=== PATIENT | male | born 1955 | race Caucasian/White ===

== ENCOUNTER 2025-10-20 03:33 | Inpatient (IN) | payer OTHER, MEDICARE ==
[~2025-10-20] VITALS: Ht 188 cm; Wt 98.9 kg
[2025-10-20] VITALS (10 sets, daily range): BP systolic 112–131; BP diastolic 75–83; PULSE 67–92; RESP 15–20; TEMP 97.7–98; O2SAT 95–99
--- NOTE | 2025-10-20 04:13 | ED.PDOC ---
History of Present Illness HPI Comments 69-year-old male who came to ER for abdominal pain. Patient denies any medical problems. Denies any abdominal surgeries. States since 10 am yesterday, he has been having constant diffuse abdominal pain, nonradiating associated with dry heaving. Denies any diarrhea or urinary symptoms. REVIEW OF SYSTEMS: General: No fever, no chills, or fatigue HEENT: No sore throat, no earache, no congestion, no neck pain. Cardiac: No chest pain. No palpitations. Lungs: No shortness of breath, no cough. GI: No nausea, no vomiting, no diarrhea, no constipation, (+) abdominal pain : No dysuria, frequency, or urgency. No hematuria. Musculoskeletal: No joint pain , no joint swelling, no extremity edema. Skin: No rash, no itching. Neuro: No headache, no dizziness, no weakness EXAM: General: Awake, alert and oriented. No acute distress. Skin: Skin in warm, dry and intact. Appropriate color for ethnicity. HEENT: The head is normocephalic and atraumatic. Conjunctivae are clear without exudates or hemorrhage. Sclera is non-icteric. EOM are intact. No signs of nystagmus. Eyelids are normal in appearance without swelling or lesions. Oral mucosa is pink and moist Neck: The neck is supple with normal range of motion. No JVD. Cardiac: Heart rate and rhythm are normal. No murmurs, gallops, or rubs are auscultated. Respiratory: No signs of respiratory distress. Lung sounds are clear in all lobes bilaterally without rales, rhonchi, or wheezes. Abdominal: Abdomen is soft, non-tender without distention. Bowel sounds are present and normoactive in all four quadrants. Extremities: Upper and lower extremities are atraumatic in appearance without deformity or edema. Neurological: The patient is awake, alert and oriented to person, place, and time with normal speech. Speech is clear. There is no facial asymmetry. Psychiatric: Appropriate mood and affect. Good judgement and insight Chief Complaint: Abdominal Pain Time Seen by MD: 04:13 Reviewed Notes: Nurses Notes Allergies: Coded Allergies: Codeine (Verified Allergy, Unknown, 10/20/25) Penicillins (Verified Allergy, Unknown, 10/20/25) Information Source: Patient Mode of Arrival: Ambulatory Past Medical History PAST MEDICAL HISTORY: Denies Surgical History (Other): Leg surgery Family History Family History: Reviewed,noncontributory to illness Social History Smoker: Non-Smoker Alcohol: Denies ETOH Use Drugs: Denies Drug Use Lives In: Home Was a procedure done? Was a procedure done?: No Differential Dx Considerations may include: Abdominal pain, gastritis, gastroenteritis, pancreatitis, gallstones, appendicitis, hernia X-Ray, Labs, Meds, VS Vital Signs Date Time Temp Pulse Resp B/P (MAP) Pulse Ox O2 Delivery O2 Flow Rate FiO2 10/20/25 08:14 65 18 125/78 10/20/25 08:00 98.2 64 17 125/78 (94) 96 98.2 10/20/25 07:35 68 10/20/25 07:00 68 15 105/66 (79) 94 10/20/25 05:30 98.4 69 18 130/71 (90) 95 98.4 10/20/25 05:30 68 18 96 Room Air* 0 21 10/20/25 05:23 64 18 130/71 10/20/25 04:53 98.4 66 17 132/74 (93) 97 98.4 10/20/25 04:53 66 17 132/74 10/20/25 04:53 66 17 97 Room Air 10/20/25 03:35 98.2 82 16 140/81 96 98.2 Lab Test 10/20/25 08:05 10/20/25 04:30 Range/Units Prothrombin Time 11.0 9.3-11.8 sec Prothrombin Time INR 1.04 0.9-1.15 Activated Partial Thromboplast Time 25.4 24.5-34.5 SEC White Blood Count 11.7 H 4.4-10.8 10^3/uL Red Blood Count 5.21 4.5-5.90 10^6/uL Hemoglobin 15.9 13.5-17.5 g/dL Hematocrit 46.7 41.0-53.0 % Mean Corpuscular Volume 89.6 80.0-100.0 fL Mean Corpuscular Hemoglobin 30.6 28.0-32.0 pg Mean Corpuscular Hemoglobin Concent 34.1 32.0-36.0 g/dL Red Cell Distribution Width 14.3 11.8-14.3 % Platelet Count 177 140-450 10^3/uL Mean Platelet Volume 9.3 6.9-10.8 fL Neutrophils (%) (Auto) 78.3 37.0-80.0 % Lymphocytes (%) (Auto) 8.1 L 10.0-50.0 % Monocytes (%) (Auto) 12.2 H 0.0-12.0 % Eosinophils (%) (Auto) 1.1 0.0-7.0 % Basophils (%) (Auto) 0.3 0.0-2.0 % Neutrophils # (Auto) 9.2 H 1.6-8.6 10 ^3/uL Lymphocytes # (Auto) 1.0 0.4-5.4 10 ^3/uL Monocytes # (Auto) 1.4 H 0-1.3 10 ^3/uL Eosinophils # (Auto) 0.1 0-0.8 10 ^3/uL Basophils # (Auto) 0 0-0.2 10 ^3/uL Nucleated Red Blood Cells 0.1 % Sodium Level 140 136-145 mmol/L Potassium Level 4.0 3.5-5.1 mmol/L Chloride Level 107 98-107 mmol/L Carbon Dioxide Level 23 20-31 mmol/L Anion Gap 10 5-15 Blood Urea Nitrogen 19 9-23 mg/dL Creatinine 1.17 0.700-1.30 mg/dL Glomerular Filtration Rate Calc 68 >90 mL/min BUN/Creatinine Ratio 16.2 10.0-20.0 Serum Glucose 105 74-106 mg/dL Calcium Level 9.8 8.7-10.4 mg/dL Total Bilirubin 0.8 0.2-1.0 mg/dL Aspartate Amino Transferase (AST) 15 13-40 U/L Alanine Aminotransferase (ALT) 19 7-40 U/L Alkaline Phosphatase 34 L 46-116 U/L Total Protein 7.4 5.7-8.2 g/dL Albumin 4.7 3.2-4.8 g/dL Lipase 35 12-53 U/L Time of 1ST Reevaluation: 04:01 Reevaluation 1ST: Unchanged Patient Education/Counseling: Need For Follow Up Family Education/Counseling: No Family Present SEPSIS Sepsis Screen Date sepsis recognized/suspect: Oct 20, 2025 Time Sepsis recognized/suspect: 336 Recent Procedure: No On Antibiotic Therapy: No Respiratory Rate >20: No Heart Rate >90: No Temp<36 C (96.8 F) or >38.3 C: No SBP <90 or MAP <65 mmHG: No New Acute Mental Status Change: No Is the patient on CPAP, BIPAP,: No Physician Orders Ct Ab Pel Wo Con-No Oral Or Iv (10/20/25 04:12) Metronidazole 500mg/100ml (Flagyl 500mg/ (10/20/25 14:00) Levofloxacin 500mg (Levaquin 500mg/ 100m (10/20/25 10:00) * Surgical Consult (10/20/25 ) Allergies (10/20/25 07:19) Code Status (10/20/25 07:19) Oxygen Per Hour (10/20/25 07:19) Ondansetron Hcl (Zofran) (10/20/25 07:30) Docusate Sodium Capsule (Colace Capsule) (10/20/25 07:30) Condition: Serious (10/20/25 07:19) Acetaminophen Tablet (Tylenol Tablet) (10/20/25 07:30) Bedrest With Bathroom Privileg (10/20/25 07:19) Sequential Compression Device (10/20/25 ) Chest Portable (10/20/25 07:36) Electrocardigram (10/20/25 07:41) Vital Signs Date Time Temp Pulse Resp B/P (MAP) Pulse Ox O2 Delivery O2 Flow Rate FiO2 10/20/25 08:14 65 18 125/78 10/20/25 08:00 98.2 64 17 125/78 (94) 96 98.2 10/20/25 07:35 68 10/20/25 07:00 68 15 105/66 (79) 94 10/20/25 05:30 98.4 69 18 130/71 (90) 95 98.4 10/20/25 05:30 68 18 96 Room Air* 0 21 10/20/25 05:23 64 18 130/71 10/20/25 04:53 98.4 66 17 132/74 (93) 97 98.4 10/20/25 04:53 66 17 132/74 10/20/25 04:53 66 17 97 Room Air 10/20/25 03:35 98.2 82 16 140/81 96 98.2 Laboratory Tests Test 10/20/25 04:30 White Blood Count 11.7 10^3/uL (4.4-10.8) H Departure 1 Departure Time of Disposition: 05:05 Impression: Primary Impression: Acute appendicitis Disposition: 09 ADMITTED INPATIENT Condition: Stable Comments 69-year-old male with the acute appendicitis, antibiotics, IV fluids, analgesics administered in the emergency department. Discussed with general surgery Patient admitted to hospitalist service for further treatment, evaluation and monitoring. Critical Care Note Critical Care Time?: No Stability Stability form required: No Heart Score Heart Score: Heart Score Response (Comments) Value History N/A 0 EKG N/A 0 Age N/A 0 Risk Factors N/A 0 Troponin N/A 0 Total 0 I personally scribed for JING MANSFIELD MD ([email or web address]) on 10/20/25 at 04:13. Electronically submitted by Adria Duran ([facility]). JING MANSFIELD MD Oct 20, 2025 04:13
[2025-10-20 04:44] LABS: Hematocrit 46.7 % (41.0-53.0); Hemoglobin 15.9 g/dL (13.5-17.5); Mean Corpuscular Hemoglobin 30.6 pg (28.0-32.0); Mean Corpuscular Volume 89.6 fL (80.0-100.0); Nucleated Red Blood Cells % 0.1 %
[2025-10-20] MEDS: ONDANSETRON HCL 4 MG/2 ML VIAL IM ONE (04:53)
[2025-10-20] MEDS: MORPHINE SULFATE INJ 2 MG/ml SYRG IM ONE (04:53)
[2025-10-20 04:55] LABS: Alanine Aminotransferase 19 U/L (7-40); Albumin 4.7 g/dL (3.2-4.8); Anion Gap 10 (5-15); BUN/Creatinine Ratio 16.2 (10.0-20.0); Bilirubin, Total 0.8 mg/dL (0.2-1.0); Blood Urea Nitrogen 19 mg/dL (9-23); Calcium 9.8 mg/dL (8.7-10.4); Carbon Dioxide 23 mmol/L (20-31); Chloride 107 mmol/L (98-107); Glucose 105 mg/dL (74-106); Lipase 35 U/L (12-53); Potassium 4.0 mmol/L (3.5-5.1); Sodium 140 mmol/L (136-145); Total Protein 7.4 g/dL (5.7-8.2)
[2025-10-20 04:57] LABS: Alkaline Phosphatase 34 U/L (46-116)
[2025-10-20] MEDS: MORPHINE SULFATE 4 MG/ML SYR/VIAL ONE (04:58)
--- NOTE | 2025-10-20 05:02 | DVH ---
EXAM: CT CT AB PEL WO CON-NO ORAL OR IV History: Abdominal pain Comparison Study: None TECHNIQUE: Multidetector CT of the abdomen and pelvis was performed from lung bases to pubic symphysis. Imaging was performed without IV contrast. Axial, coronal and sagittal multiplanar reformats were obtained from the axial data set by the technologist. Radiation optimization: All CT scans at this facility use at least one of these dose optimization techniques: automated exposure control mA and/or kV adjustment per patient size (includes targeted exams where dose is matched to clinical indication) or iterative reconstruction. Radiation Dose Information: CT Dose: CTDI volume is 8.65 mGy. Dose-length product is 524.0 mGy*cm FINDINGS: Evaluation of solid organs is limited due to lack of intravenous contrast use. Imaged portions of the lung bases appear unremarkable. Mild coronary artery calcifications. Moderate hiatal hernia. Hypodensities within the liver likely represent cysts. Gallbladder, spleen, pancreas and adrenal glands appear unremarkable. The kidneys demonstrate probable bi lateral parapelvic cysts. No evidence of hydronephrosis. The appendix is dilated to 1.3 cm with marked periappendiceal fat stranding and a 0.6 cm appendicolith at the base. No evidence of perforation or abscess. No evidence of small-bowel obstruction. Diffuse colonic diverticulosis. No free fluid, free air, or adenopathy. Prostate gland is prominent measuring 5.8 x 5.1 cm. No free fluid, free air, or adenopathy. No suspicious osseous lesion. IMPRESSION: 1. Findings consistent with acute uncomplicated appendicitis and appendicolith. Critical Result: Acute appendicitis Findings discussed with JING MANSFIELD at 10/20/2025 07:59 AM EST, and acknowledged receipt and understanding of the findings. ..
[2025-10-20] MEDS: SODIUM CHLORIDE 0.9% 1,000 ML IV ONE (05:30)
[2025-10-20] MEDS ORDERED: DOCUSATE SOD 100 MG CAP PO PRN (07:30)
[2025-10-20] MEDS ORDERED: ACETAMINOPHEN 325 MG TAB PO PRN (07:30)
[2025-10-20] MEDS: Lidocaine/Epinephrine 1%-1:100,000 30ML VL ONE (07:50)
[2025-10-20] MEDS: HYDROmorphone HCL 2 MG/ML VL/or syr IV ONE (08:14)
[2025-10-20] MEDS: ONDANSETRON HCL 4 MG/2 ML VIAL IV ONE (08:14)
[2025-10-20] MEDS: SOD CHL 0.45% 1,000 ML IV SCH (08:16)
--- NOTE | 2025-10-20 08:21 | DVH ---
CHEST RADIOGRAPH INDICATION: preoperative TECHNIQUE: XY CHEST PORTABLE Comparison: None FINDINGS: The cardiac silhouette is unremarkable. The lungs demonstrate left basilar airspace opacities. The pulmonary vasculature is unremarkable. Small left pleural effusion. There is no pneumothorax. IMPRESSION: Left basilar airspace opacification Small left pleural effusion
--- NOTE | 2025-10-20 08:32 | DVHHP2 ---
History of Present Illness Reason for Visit: Acute appendicitis History of Present Illness The patient is a 69-year-old male who denies past medical history presented to [facility] ED with complaint of abdominal pain. Patient reports that he has been experiencing constant diffuse abdominal pain rating 7/10 numeric s ondina, nonradiating, associated with dry heaving, getting worse that prompted this visit. Patient was seen and evaluated in the ED, laboratory data shows WBC 11.7, platelets 177, sodium 140, potassium 4.0, BUN 19, creatinine 1.17, GFR 68, glucose 105, calcium 9.8, lipase 35, blood pressure 130/71, heart rate 69, temperature 98.4 F, O2 saturation 97% on room air. Abdomen/pelvis CT consistent with acute uncomplicated appendicitis and appendicolith; chest x-ray revealing left bibasilar airspace opacification, small left pleural effusion. Patient was started on IV antibiotic regimen levofloxacin, please see medication orders section in the computer. On my assessment, at bedside, patient denied chest pain, no headache, dizziness, diaphoresis, shortness of breaths, no abdominal pain, diarrhea, nausea or vomiting at this moment, no fever, no chills. Patient was admitted for further evaluation and medical management. Past Medical History Denies past medical history Past Surgical History Leg surgery Family History Reviewed, noncontributory to the management of this case. Past Social History The patient lives at home, denies smoking, alcohol or illicit drugs abuse. Review of Systems Constitutional: Yes: Weakness; No: Fever, Chills, Sweats, Malaise, Other Eyes: No: Pain, Vision change, Conjunctivae inflammation, Eyelid inflammation, Other, Redness ENT: No: Ear pain, Ear discharge, Nose pain, Nose discharge, Nose congestion, Mouth pain, Mouth swelling, Throat pain, Throat swelling, Other Respiratory: No: Cough, Dry, Shortness of breath, SOB with excertion, Wheezing, Hemoptysis, Pleuritic Pain, Sputum, Wheezing, Other Cardiovascular: No: Chest Pain, Palpitations, Orthopnea, Paroxysmal Noc. Dyspnea, Edema, Lt Headedness, Other Gastrointestinal: Abdominal Pain; No: Nausea, Vomiting, Diarrhea, Constipation, Melena, Hematochezia, Other Genitourinary: No Dysuria, No Frequency, No Incontinence, No Hematuria, No Retention, No Other Musculoskeletal: No: other, neck pain, shoulder pain, arm pain, back pain, hand pain, leg pain, foot pain Skin: No: Rash, Lesions, Jaundice, Bruising, Other Neurological: No: Weakness, Numbness, Incoordination, Change in speech, Confusion, Seizures, Other Allergies: Coded Allergies: Codeine (Verified Allergy, Unknown, 10/20/25) Penicillins (Verified Allergy, Unknown, 10/20/25) Medications Current Medications Medications Dose Ordered Sig/Jasper Route Start Time Stop Time Status Last Admin Dose Admin Metronidazole 100 ml @ 100 mls/hr Q8HR IV 10/20/25 14:00 Levofloxacin/ Dextrose 100 ml @ 100 mls/hr DAILY IV 10/20/25 10:00 Ondansetron HCl 4 mg Q4HP PRN IV 10/20/25 07:30 Docusate Sodium 100 mg BIDPRN PRN PO 10/20/25 07:30 Acetaminophen 650 mg Q6HP PRN PO 10/20/25 07:30 Sodium Chloride 1,000 ml @ 50 mls/hr Q20H IV 10/20/25 07:45 10/20/25 08:16 50 MLS/HR Exam Vital Signs Vital Signs Date Time Temp Pulse Resp B/P (MAP) Pulse Ox O2 Delivery O2 Flow Rate FiO2 10/20/25 08:14 65 18 125/78 10/20/25 08:00 98.2 96 98.2 10/20/25 05:30 Room Air* 0 21 General Appearance: Alert, Oriented X3, Cooperative, No acute distress HEENT: Atraumatic, PERRLA, EOMI, Mucous membr. moist/pink Respiratory: Normal air movement Cardiovascular: Regular rate, Normal S1, Normal S2, No murmurs Abdominal: Normal bowel sounds, Soft, No tenderness, No hepatospenomegaly, No masses Extremities: No clubbing, No cyanosis, No edema, Normal pulses, No tenderness/swelling Skin: No rashes, No significant lesion Neuro: Normal speech, Normal tone, Sensation intact, Cranial nerves 3-12 NL, Reflexes 2+, Other (Generalized weakness) Psych/Mental Status: Mental status NL, Mood NL Labs/Xrays Labs Test 10/20/25 08:05 10/20/25 04:30 Range/Units White Blood Count 11.7 H 4.4-10.8 10^3/uL Red Blood Count 5.21 4.5-5.90 10^6/uL Hemoglobin 15.9 13.5-17.5 g/dL Hematocrit 46.7 41.0-53.0 % Mean Corpuscular Volume 89.6 80.0-100.0 fL Mean Corpuscular Hemoglobin 30.6 28.0-32.0 pg Mean Corpuscular Hemoglobin Concent 34.1 32.0-36.0 g/dL Red Cell Distribution Width 14.3 11.8-14.3 % Platelet Count 177 140-450 10^3/uL Mean Platelet Volume 9.3 6.9-10.8 fL Neutrophils (%) (Auto) 78.3 37.0-80.0 % Lymphocytes (%) (Auto) 8.1 L 10.0-50.0 % Monocytes (%) (Auto) 12.2 H 0.0-12.0 % Eosinophils (%) (Auto) 1.1 0.0-7.0 % Basophils (%) (Auto) 0.3 0.0-2.0 % Neutrophils # (Auto) 9.2 H 1.6-8.6 10 ^3/uL Lymphocytes # (Auto) 1.0 0.4-5.4 10 ^3/uL Monocytes # (Auto) 1.4 H 0-1.3 10 ^3/uL Eosinophils # (Auto) 0.1 0-0.8 10 ^3/uL Basophils # (Auto) 0 0-0.2 10 ^3/uL Nucleated Red Blood Cells 0.1 % Sodium Level 140 136-145 mmol/L Potassium Level 4.0 3.5-5.1 mmol/L Chloride Level 107 98-107 mmol/L Carbon Dioxide Level 23 20-31 mmol/L Anion Gap 10 5-15 Blood Urea Nitrogen 19 9-23 mg/dL Creatinine 1.17 0.700-1.30 mg/dL Glomerular Filtration Rate Calc 68 >90 mL/min BUN/Creatinine Ratio 16.2 10.0-20.0 Serum Glucose 105 74-106 mg/dL Calcium Level 9.8 8.7-10.4 mg/dL Total Bilirubin 0.8 0.2-1.0 mg/dL Aspartate Amino Transferase (AST) 15 13-40 U/L Alanine Aminotransferase (ALT) 19 7-40 U/L Alkaline Phosphatase 34 L 46-116 U/L Total Protein 7.4 5.7-8.2 g/dL Albumin 4.7 3.2-4.8 g/dL Lipase 35 12-53 U/L PATIENT: JUAN ALEJANDRO ACCT: [id number] UNIT: [id number] : 1955 LOC: ER ROOM / BED: / AGE / SEX: 69 / M ADM STATUS: REG ER SERVICE 0412 ORDERING PHYSICIAN: JING MANSFIELD MD PROCEDURE(s): ABPL - CT AB PEL WO CON-NO ORAL OR IV REASON: Abdominal pain ORDER NUMBER(s): [id number], ACCESSION NUMBER(s): [id number] EXAM: CT CT AB PEL WO CON-NO ORAL OR IV History: Abdominal pain Comparison Study: None TECHNIQUE: Multidetector CT of the abdomen and pelvis was performed from lung bases to pubic symphysis. Imaging was performed without IV contrast. Axial, coronal and sagittal multiplanar reformats were obtained from the axial data set by the technologist. Radiation optimization: All CT scans at this facility use at least one of these dose optimization techniques: automated exposure control mA and/or kV adjustment per patient size (includes targeted exams where dose is matched to clinical indication) or iterative reconstruction. Radiation Dose Information: CT Dose: CTDI volume is 8.65 mGy. Dose-length product is 524.0 mGy*cm FINDINGS: Evaluation of solid organs is limited due to lack of intravenous contrast use. Imaged portions of the lung bases appear unremarkable. Mild coronary artery calcifications. Moderate hiatal hernia. Hypodensities within the liver likely represent cysts. Gallbladder, spleen, pancreas and adrenal glands appear unremarkable. The kidneys demonstrate probable bi lateral parapelvic cysts. No evidence of hydronephrosis. The appendix is dilated to 1.3 cm with marked periappendiceal fat stranding and a 0.6 cm appendicolith at the base. No evidence of perforation or abscess. No evidence of small-bowel obstruction. Diffuse colonic diverticulosis. No free fluid, free air, or adenopathy. Prostate gland is prominent measuring 5.8 x 5.1 cm. No free fluid, free air, or adenopathy. No suspicious osseous lesion. IMPRESSION: 1. Findings consistent with acute uncomplicated appendicitis and appendicolith. Critical Result: Acute appendicitis ORDERING PHYSICIAN: RADHA DOUGHERTY MD PROCEDURE(s): CXRP - CHEST PORTABLE REASON: preoperative ORDER NUMBER(s): [id number], ACCESSION NUMBER(s): [id number] CHEST RADIOGRAPH INDICATION: preoperative TECHNIQUE: XY CHEST PORTABLE Comparison: None FINDINGS: The cardiac silhouette is unremarkable. The lungs demonstrate left basilar airspace opacities. The pulmonary vasculature is unremarkable. Small left pleural effusion. There is no pneumothorax. IMPRESSION: Left basilar airspace opacification Small left pleural effusion SEPSIS Sepsis Screen Date sepsis recognized/suspect: Oct 20, 2025 Time Sepsis recognized/suspect: 529 Recent Procedure: No On Antibiotic Therapy: No Respiratory Rate >20: No Heart Rate >90: No Temp<36 C (96.8 F) or >38.3 C: No SBP <90 or MAP <65 mmHG: No New Acute Mental Status Change: No Is the patient on CPAP, BIPAP,: No Physician Orders Ct Ab Pel Wo Con-No Oral Or Iv (10/20/25 04:12) Metronidazole 500mg/100ml (Flagyl 500mg/ (10/20/25 14:00) Levofloxacin 500mg (Levaquin 500mg/ 100m (10/20/25 10:00) * Surgical Consult (10/20/25 ) Allergies (10/20/25 07:19) Code Status (10/20/25 07:19) Oxygen Per Hour (10/20/25 07:19) Ondansetron Hcl (Zofran) (10/20/25 07:30) Docusate Sodium Capsule (Colace Capsule) (10/20/25 07:30) Complete Blood Count (10/21/25 04:00) Comprehensive Metabolic Panel (10/21/25 04:00) Condition: Serious (10/20/25 07:19) Acetaminophen Tablet (Tylenol Tablet) (10/20/25 07:30) Clear Liq Diet (10/20/25 Breakfast) Bedrest With Bathroom Privileg (10/20/25 07:19) Sequential Compression Device (10/20/25 ) Chest Portable (10/20/25 07:36) PTPTT (10/20/25 07:37) Type And Screen (10/20/25 07:37) Electrocardigram (10/20/25 07:41) Sod Chl 0.45% (Sodium Chloride 0.45% Via (10/20/25 07:45) Vital Signs Date Time Temp Pulse Resp B/P (MAP) Pulse Ox O2 Delivery O2 Flow Rate FiO2 10/20/25 08:14 65 18 125/78 10/20/25 08:00 98.2 64 17 125/78 (94) 96 98.2 10/20/25 07:35 68 10/20/25 07:00 68 15 105/66 (79) 94 10/20/25 05:30 98.4 69 18 130/71 (90) 95 98.4 10/20/25 05:30 68 18 96 Room Air* 0 21 10/20/25 05:23 64 18 130/71 10/20/25 04:53 98.4 66 17 132/74 (93) 97 98.4 10/20/25 04:53 66 17 132/74 10/20/25 04:53 66 17 97 Room Air 10/20/25 03:35 98.2 82 16 140/81 96 98.2 Laboratory Tests Test 10/20/25 04:30 White Blood Count 11.7 10^3/uL (4.4-10.8) H Medications Medications Dose Ordered Sig/Jasper Route Start Time Stop Time Status Last Admin Dose Admin Hydromorphone HCl 1 mg ONCE ONCE IV 10/20/25 08:15 10/20/25 08:16 DC 10/20/25 08:14 1 MG Levofloxacin/ Dextrose 150 ml @ 150 mls/hr ONCE ONCE IV 10/20/25 05:00 10/20/25 05:59 DC 10/20/25 06:41 150 MLS/HR Metronidazole 100 ml @ 100 mls/hr ONCE ONCE IV 10/20/25 05:00 10/20/25 05:59 DC 10/20/25 05:29 100 MLS/HR Morphine Sulfate 4 mg ONCE ONCE IM 10/20/25 04:15 10/20/25 04:16 DC 10/20/25 04:53 4 MG Ondansetron HCl 4 mg ONCE ONCE IM 10/20/25 04:15 10/20/25 04:16 DC 10/20/25 04:53 4 MG Ondansetron HCl 4 mg ONCE ONCE IV 10/20/25 08:15 10/20/25 08:16 DC 10/20/25 08:14 4 MG Sodium Chloride 1,000 ml @ 50 mls/hr Q20H IV 10/20/25 07:45 10/20/25 08:16 50 MLS/HR Sodium Chloride 1,000 ml @ 1,000 mls/hr Q1H ONCE IV 10/20/25 05:15 10/20/25 06:14 DC 10/20/25 05:30 1,000 MLS/HR Assessment/Plan Assessment/Plan Acute appendicitis Leukocytosis, unspecified Acute abdominal pain Generalized weakness Plan 1. Admit to telemetry unit 2. Breathing treatment 3. Pain control management 4. IV antibiotic management 5. Management of fluids and electrolytes 6. Consultation for surgery/hospitalist 7. Diagnostic test abdomen/pelvis CT 8. DVT prophylaxis-on SCDs 9. Repeat labs CBC, CMP in a.m. 10. Continue with current medical management 11. Treatment plan discussed with patient/ and RN. Patient/ verbalized understanding. Plan discussed with: Patient, Spouse ( at bedside), Other (RN) My Orders Orders - RONALD OHARA DNP Procedure Category Date Status Time Metronidazole PHA 10/20/25 In Process 500mg/100ml (Flagyl 14:00 Levofloxacin 500mg PHA 10/20/25 In Process (Levaquin 500mg/ 100m 10:00 * Surgical Consult CONS 10/20/25 Transmitted Allergies LELAND 10/20/25 In Process 07:19 Code Status CODE 10/20/25 Transmitted 07:19 Oxygen Per Hour RT 10/20/25 Transmitted 07:19 Ondansetron Hcl PHA 10/20/25 In Process (Zofran) 07:30 Docusate Sodium PHA 10/20/25 In Process Capsule (Colace 07:30 Complete Blood Count LAB 10/21/25 Verified 04:00 Comprehensive LAB 10/21/25 Verified Metabolic Panel 04:00 Condition: Serious LELAND 10/20/25 In Process 07:19 Acetaminophen Tablet PHA 10/20/25 In Process (Tylenol Tablet) 07:30 Clear Liq Diet DIET 10/20/25 Transmitted Breakfast Bedrest With Bathroom LELAND 10/20/25 In Process Privileg 07:19 Sequential LELAND 10/20/25 In Process Compression Device Sod Chl 0.45% (Sodium PHA 10/20/25 In Process Chloride 0.45% Via 07:45 Problem List: (1) Acute appendicitis (2) Leukocytosis, unspecified (3) Acute abdominal pain (4) Generalized weakness Date of Service: Oct 20, 2025 Billing Provider: RONALD OHARA DNP Common Visit Codes: [id number] INP/OBS CARE (HIGH) RONALD OHARA DNP Oct 20, 2025 08:32
[2025-10-20 08:33] LABS: INR 1.04 (0.9-1.15); Partial Thromboplastin Time 25.4 SEC (24.5-34.5); Prothrombin Time 11.0 sec (9.3-11.8)
[2025-10-20] MEDS ORDERED: NITROGLYCERIN 0.4 MG SL TAB SL PRN (08:45)
[2025-10-20] MEDS ORDERED: MORPHINE SULFATE INJ 2 MG/ml SYRG IV PRN ×2 (08:45→10:30)
[2025-10-20] MEDS ORDERED: HYDROmorphone HCL 2 MG/ML VL/or syr ONE (08:55)
[2025-10-20] MEDS ORDERED: fentaNYL CITRATE 100 MCG/2 ML VL ONE ×2 (08:55→11:34)
[2025-10-20] MEDS ORDERED: MIDAZOLAM HCL 2MG/2ML 2ml VIAL (1mg/ml) ONE (08:55)
[2025-10-20] MEDS ORDERED: ONDANSETRON HCL 4 MG/2 ML VIAL IV PRN (09:00)
[2025-10-20] MEDS ORDERED: fentaNYL CITRATE 100 MCG/2 ML VL IV PRN (09:00)
--- NOTE | 2025-10-20 10:27 | DVHOP2 ---
Operative Report - 2 Report Details Date: 10/20/25 Preop Diagnosis: Acute appendicitis Postop Diagnosis: Same Surgeon: Radha Ohara MD Senior Sql Database Developer: None Anesthesiologist: Modesto Vega CRNA Anesthesia: General, Local Consent: The surgery and its risks including but not limited to infection, bleeding requiring possible blood transfusion with the risk of hepatitis or HIV infection, possible open surgery, possible perioperative [place] or stroke were explained to the patient and his . All questions were answered to their satisfaction. He expressed verbal understanding and wished to proceed with the surgery. Complications: None Estimated Blood Loss: 30 mL Fluids: 1500 mL Name of Procedure Performed Laparoscopic appendectomy Procedure Details Procedure Details: After induction of general anesthesia, patient had a Fournier catheter placed by the OR nursing staff. Patient's abdomen was then prepped and draped in standard surgical fashion. A small periumbilical incision was made around his small reducible umbilical hernia. The umbilical dermis was then retracted inferiorly reviewing the fascial defect which measured roughly 1 cm in size. The peritoneum and the preperitoneal fat was then excised to better cleaned up the edge of the fascial defect. Interrupted 0 Vicryl stay sutures were placed throug the fascial opening. Jonathon trocar was then introduced and secured using the Vicryl sutures. Abdomen was insufflated to 15 mmHg and camera was inserted. Visual examination of the intestine under the fascial incision appeared normal without injury. Under direct visualization, a 5 mm bladeless trocar was placed in the left lower quadrant and a 2nd 5 mm bladeless trocar was placed in the suprapubic region both under direct visualization. Examination of the right lower quadrant revealed a very inflamed appendix without gross perforation. The mesoappendix was stapled and divided using an endovascular stapler up to the base of the appendix. The base of the appendix was then stapled and divided using a regular endo stapler. The appendix was then removed from the abdominal cavity using an endo pouch bag and sent off the surgical field. Abdomen was then re-insufflated and staple line was examined. It appeared intact without bleeding or leaks. There was small amount of serosanguineous fluid collected in the pelvis and this was aspirated. Pelvic area was then well irrigated until fluid was clear. Trocars were then removed under direct visualization as the abdomen was deflated. Additional interrupted 0 Vicryl sutures were placed through the umbilical fascial defect and closed the hernia primarily. Surgical site was irrigated injected with 15 mL of 0.25% Marcaine with epinephrine. Skin incision was then closed using 4-0 Monocryl suture in subcuticular fashion. Surgical site was cleaned and dried and dressings were applied. Sponge, needle, instrument count at the end of the case were reported to be correct by the nursing staff. The patient tolerated procedure well was awakened, extubated and transferred to recovery in stable condition. Specimen: Appendix Condition Stable Disposition Still a Patient (Yes) RADHA OHARA MD Oct 20, 2025 10:27
--- NOTE | 2025-10-20 10:55 | ECG ---
[facility] Test Date: 2025-10-20 Test Time: 07:35:48 Pat Name: JUAN ALEJANDRO Department: [facility] ED Room: 0223T Gender: M Head Setter: GEORGIE : 1955 Requested By: JING MANSFIELD Order Number: [id number] Reading MD: Emeka Florence Measurements Intervals [place] Rate: 68 P: 61 W[place]: 203 QRS: 92 QRSD: 104 T: 13 QT: 414 QTc: 441 Interpretive Statements Sinus rhythm Right axis deviation Electronically Signed On 10-22-2025 15:26:23 PST by Emeka Florence Please click the below link to view image of tracing.
[2025-10-20] MEDS: SODIUM CHLORIDE 0.9% 1,000 ML IV SCH (13:30)
[2025-10-21] VITALS (8 sets, daily range): BP systolic 111–139; BP diastolic 71–89; PULSE 75–86; RESP 17–19; TEMP 97.8–99.1; O2SAT 91–96
[2025-10-21 07:16] LABS: Hematocrit 39.4 % (41.0-53.0); Hemoglobin 13.9 g/dL (13.5-17.5); Mean Corpuscular Hemoglobin 31.7 pg (28.0-32.0); Mean Corpuscular Volume 89.8 fL (80.0-100.0); Nucleated Red Blood Cells % 0.1 %
[2025-10-21 07:31] LABS: Alanine Aminotransferase 15 U/L (7-40); Anion Gap 10 (5-15); BUN/Creatinine Ratio 11.8 (10.0-20.0); Blood Urea Nitrogen 13 mg/dL (9-23); Calcium 9.1 mg/dL (8.7-10.4); Carbon Dioxide 24 mmol/L (20-31); Chloride 105 mmol/L (98-107); Potassium 3.8 mmol/L (3.5-5.1); Sodium 139 mmol/L (136-145); Total Protein 6.5 g/dL (5.7-8.2)
[2025-10-21 07:32] LABS: Albumin 4.1 g/dL (3.2-4.8); Alkaline Phosphatase 33 U/L (46-116); Glucose 107 mg/dL (74-106)
[2025-10-21 07:33] LABS: Bilirubin, Total 0.8 mg/dL (0.2-1.0)
[2025-10-21] MEDS: ONDANSETRON HCL 4 MG/2 ML VIAL IV PRN (08:38)
--- NOTE | 2025-10-21 09:31 | DVHPN2 ---
Progress Note - Dictate Date Seen: Oct 21, 2025 Medical Necessity Reason Pt with a Central, PICC or Fol: No Subjective E: no major events o/n. small emesis this am. feels slt bloated. no flatus vital signs Vital Sign Date Time Temp Pulse Resp B/P (MAP) Pulse Ox O2 Delivery O2 Flow Rate FiO2 10/21/25 05:00 97.9 86 18 124/74 (91) 91 97.9 10/20/25 20:00 Room Air* 4 N/A Nasal Cannula* Total Intake and Output 10/20/25 10/20/25 10/21/25 15:00 23:00 07:00 Intake Total 100 ml 1800 ml Output Total 600 ml Balance 100 ml 1200 ml medications Current Medications Medications Dose Ordered Sig/Jasper Route Start Time Stop Time Status Last Admin Dose Admin Metronidazole 100 ml @ 100 mls/hr Q8HR IV 10/20/25 14:00 10/21/25 05:30 100 MLS/HR Levofloxacin/ Dextrose 100 ml @ 100 mls/hr DAILY IV 10/20/25 10:00 10/21/25 08:39 100 MLS/HR Ondansetron HCl 4 mg Q4HP PRN IV 10/20/25 07:30 10/21/25 08:38 4 MG Docusate Sodium 100 mg BIDPRN PRN PO 10/20/25 07:30 Acetaminophen 650 mg Q6HP PRN PO 10/20/25 07:30 Nitroglycerin 0.4 mg Q5MINP PRN SL 10/20/25 08:45 Sodium Chloride 1,000 ml @ 75 mls/hr [id number] IV 10/20/25 10:30 10/20/25 23:43 75 MLS/HR Morphine Sulfate 2 mg Q4HPRN PRN IV 10/20/25 10:30 objective GEN: NAD ABD: surgical dressings clean and dry. min distention laboratory and microbiology Laboratory Tests 10/21/25 05:39 Test 10/21/25 05:39 Range/Units Serum Glucose 107 H 74-106 mg/dL Assessment/Plan A: 1. s/p lap appendectomy POD #1 P: 1. ambulate 2. dc home after flatus or BM 3. remove top bandages tomorrow. Leave steristrips on. ok to shower and get incisions wet tomorrow. 4. call [phone] for f/u appt for next week. Plan discussed with: Patient RADHA DOUGHERTY MD Oct 21, 2025 09:31
[2025-10-21] MEDS ORDERED: MORPHINE SULFATE 4 MG/ML SYR/VIAL IV PRN (12:30)
[2025-10-21] MEDS ORDERED: PROPOFOL 10 MG/ML 20 ML IV ONE (13:24)
[2025-10-21] MEDS ORDERED: ROCURONIUM 10MG/ML 10ML VIAL IV ONE (13:24)
[2025-10-21] MEDS ORDERED: ONDANSETRON HCL 4 MG/2 ML VIAL IV ONE (13:24)
[2025-10-21] MEDS: SIMETHICONE 80 MG CHEWABLE TABLET PO ONE (14:05)
--- NOTE | 2025-10-21 14:11 | DVHPN2 ---
Subjective The patient seen and examined at bedside. Still very sleepy. Daughter at bedside. She said the patient has been burping a lot but no Bowel movement or flatus. the patient did not tolerate clear liquid diet today. He vomited. Reviewed: Care Plan, H&P, Labs, Medications, Previous Orders, Radiology Changes from previous H/P or p: No Changes Eyes: No Pain, No Vision change, No Conjunctivae inflammation, No Eyelid inflammation, No Other, No Redness ENT: No Ear pain, No Ear discharge, No Nose pain, No Nose discharge, No Nose congestion, No Mouth pain, No Mouth swelling, No Throat pain, No Throat swelling, No Other Cardiovascular: No Chest Pain, No Palpitations, No Orthopnea, No Paroxysmal Noc. Dyspnea, No Edema, No Lt Headedness, No Other Respiratory: No Cough, No Dry, No Shortness of breath, No SOB with excertion, No Wheezing, No Hemoptysis, No Pleuritic Pain, No Sputum, No Other Gastrointestinal: No Nausea, No Vomiting; Abdominal Pain; No Diarrhea, No Constipation, No Melena, No Hematochezia, No Other Genitourinary: No Dysuria, No Frequency, No Incontinence, No Hematuria, No Retention, No Other Musculoskeletal: No other, No neck pain, No shoulder pain, No arm pain, No back pain, No hand pain, No leg pain, No foot pain Skin: No Rash, No Lesions, No Jaundice, No Bruising, No Other Objective Vitals Vital Signs Date Time Temp Pulse Resp B/P (MAP) Pulse Ox O2 Delivery O2 Flow Rate FiO2 10/21/25 09:00 98.6 80 18 132/81 (98) 94 98.6 10/21/25 08:00 Nasal Cannula* 4 N/A Simple Mask* Intake/Output Intake and Output 10/21/25 07:00 Intake Total 1900 ml Output Total 600 ml Balance 1300 ml Intake Oral 700 ml IV Total 1200 ml Output Urine Total 600 ml General Appearance: Alert HEENT: Atraumatic, PERRLA, EOMI, Mucous membr. moist/pink Neck: Supple Lungs: Clear to auscultation, Normal air movement Cardiovascular: Regular rate, Normal S1, Normal S2, No murmurs, Gallops, Rubs Abdomen: Normal bowel sounds, Soft, No tenderness Neuro: Cranial nerves 3-12 NL Psych/Mental Status: Mental status NL Medications Current Medications Medications Dose Ordered Sig/Jasper Route Start Time Stop Time Status Last Admin Dose Admin Metronidazole 100 ml @ 100 mls/hr Q8HR IV 10/20/25 14:00 10/21/25 05:30 100 MLS/HR Levofloxacin/ Dextrose 100 ml @ 100 mls/hr DAILY IV 10/20/25 10:00 10/21/25 08:39 100 MLS/HR Ondansetron HCl 4 mg Q4HP PRN IV 10/20/25 07:30 10/21/25 08:38 4 MG Docusate Sodium 100 mg BIDPRN PRN PO 10/20/25 07:30 Acetaminophen 650 mg Q6HP PRN PO 10/20/25 07:30 Nitroglycerin 0.4 mg Q5MINP PRN SL 10/20/25 08:45 Morphine Sulfate 2 mg Q4HPRN PRN IV 10/21/25 12:30 Hold Ketorolac Tromethamine 30 mg Q6HPRN PRN IV 10/21/25 13:15 10/26/25 13:14 Potassium Chloride/Dextrose/ Sod Cl 1,000 ml @ 75 mls/hr [id number] IV 10/21/25 14:00 UNV Laboratory Results Laboratory Tests 10/21/25 05:39 Chemistry Test 10/21/25 05:39 Albumin 4.1 g/dL (3.2-4.8) Calcium Level 9.1 mg/dL (8.7-10.4) Total Protein 6.5 g/dL (5.7-8.2) LFT Test 10/21/25 05:39 Alanine Aminotransferase (ALT) 15 U/L (7-40) Alkaline Phosphatase 33 U/L (46-116) L Aspartate Amino Transferase (AST) 12 U/L (13-40) L Total Bilirubin 0.8 mg/dL (0.2-1.0) Labs and/or images reviewed: Labs reviewed by me Assessment/Plan Assessment/Plan Acute appendicitis Leukocytosis, unspecified Acute abdominal pain Generalized weakness Nausea/vomiting Continue current management Continue IVF Keep NPO for now. Will try diet again when tolerate. Encourage to be out of bed and ambulate. Plan discussed with: Patient, Daughter Date of Service: Oct 21, 2025 Billing Provider: CONNOR JORDAN MD Common Visit Codes: [id number] INP/OBS CARE(HIGH) CONNOR JORDAN MD Oct 21, 2025 14:11
[2025-10-21] MEDS: KETOROLAC TROMETH 30 MG/ML 1ML VIAL IV PRN (15:17)
[2025-10-21] MEDS: D5W/ SOD CHL 0.9%/KCL 20MEQ 1,000 ML IV SCH (16:30)
--- NOTE | 2025-10-21 17:10 | DVH ---
Date: 10/21/2025 03:57 PM Examination: XY KUB ABDOMEN SINGLE VIEW History: ileus COMPARISON: CT abdomen and pelvis from 10/28/2025 TECHNIQUE: Frontal views of the abdomen was obtained. FINDINGS: There is gas distention of small and large bowel loops. Mild degenerative change of the bilateral hips. Mild degenerative change of the lower thoracic and lumbar spine No acute osseous abnormality identified. IMPRESSION: 1. Gas distention of small and large bowel loops which could reflect ileus.
[2025-10-22] VITALS (7 sets, daily range): BP systolic 141–160; BP diastolic 85–94; PULSE 72–88; RESP 16–18; TEMP 97–98.4; O2SAT 93–98
[2025-10-22 06:54] LABS: Hematocrit 41.1 % (41.0-53.0); Hemoglobin 14.2 g/dL (13.5-17.5); Mean Corpuscular Hemoglobin 31.0 pg (28.0-32.0); Mean Corpuscular Volume 90.1 fL (80.0-100.0); Nucleated Red Blood Cells % 0.0 %
[2025-10-22 07:01] LABS: Chloride 106 mmol/L (98-107); Potassium 3.7 mmol/L (3.5-5.1); Sodium 141 mmol/L (136-145)
[2025-10-22 07:02] LABS: Anion Gap 8 (5-15); Carbon Dioxide 27 mmol/L (20-31)
[2025-10-22 07:03] LABS: Calcium 9.3 mg/dL (8.7-10.4)
[2025-10-22 07:08] LABS: BUN/Creatinine Ratio 18.3 (10.0-20.0)
[2025-10-22 07:18] LABS: Blood Urea Nitrogen 23 mg/dL (9-23); Glucose 116 mg/dL (74-106)
--- NOTE | 2025-10-22 10:13 | DVHPN2 ---
Progress Note - Dictate Date Seen: Oct 22, 2025 Medical Necessity Reason Pt with a Central, PICC or Fol: No Subjective E: no major events o/n. feels much better. +flatus/BM vital signs Vital Sign Date Time Temp Pulse Resp B/P (MAP) Pulse Ox O2 Delivery O2 Flow Rate FiO2 10/22/25 05:00 97.0 88 17 149/89 (109) 93 97.0 10/21/25 20:00 Nasal Cannula* 4 N/A Simple Mask* Total Intake and Output 10/21/25 10/21/25 10/22/25 15:00 23:00 07:00 Intake Total 100 ml 380 ml 900 ml Output Total 650 ml Balance 100 ml -270 ml 900 ml medications Current Medications Medications Dose Ordered Sig/Jasper Route Start Time Stop Time Status Last Admin Dose Admin Metronidazole 100 ml @ 100 mls/hr Q8HR IV 10/20/25 14:00 10/22/25 05:38 100 MLS/HR Levofloxacin/ Dextrose 100 ml @ 100 mls/hr DAILY IV 10/20/25 10:00 10/22/25 08:28 100 MLS/HR Ondansetron HCl 4 mg Q4HP PRN IV 10/20/25 07:30 10/21/25 08:38 4 MG Docusate Sodium 100 mg BIDPRN PRN PO 10/20/25 07:30 Acetaminophen 650 mg Q6HP PRN PO 10/20/25 07:30 Nitroglycerin 0.4 mg Q5MINP PRN SL 10/20/25 08:45 Morphine Sulfate 2 mg Q4HPRN PRN IV 10/21/25 12:30 Hold Ketorolac Tromethamine 30 mg Q6HPRN PRN IV 10/21/25 13:15 10/26/25 13:14 10/21/25 21:43 30 MG Potassium Chloride/Dextrose/ Sod Cl 1,000 ml @ 75 mls/hr [id number] IV 10/21/25 14:00 10/22/25 05:38 75 MLS/HR objective GEN: NAD ABD: surgical incisions healing well. much less distention. laboratory and microbiology Laboratory Tests 10/22/25 04:30 Test 10/22/25 04:30 Range/Units Serum Glucose 116 H 74-106 mg/dL Assessment/Plan A: 1. s/p lap appendectomy POD #2 stable from surgery POV. P: 1. clear liquid diet. 2. ok to shower and get incisions wet tomorrow. 3. call [phone] for f/u appt. f/u in clinic next week. 4. ok for DC home if ruel liquid diet and ok with hospitalist. Plan discussed with: Patient, Spouse RADHA DOUGHERTY MD Oct 22, 2025 10:12
--- NOTE | 2025-10-22 12:06 | DVHPN2 ---
Subjective The patient seen and examined at bedside. Alert awake, at bedside. The patient has one bowel movement and has been ambulate. patient however, did not tolerate clear liquid diet yet. He take some bite but feel like he cannot eat it. Reviewed: Care Plan, H&P, Labs, Medications, Previous Orders, Radiology Changes from previous H/P or p: No Changes Eyes: No Pain, No Vision change, No Conjunctivae inflammation, No Eyelid inflammation, No Other, No Redness ENT: No Ear pain, No Ear discharge, No Nose pain, No Nose discharge, No Nose congestion, No Mouth pain, No Mouth swelling, No Throat pain, No Throat swelling, No Other Cardiovascular: No Chest Pain, No Palpitations, No Orthopnea, No Paroxysmal Noc. Dyspnea, No Edema, No Lt Headedness, No Other Respiratory: No Cough, No Dry, No Shortness of breath, No SOB with excertion, No Wheezing, No Hemoptysis, No Pleuritic Pain, No Sputum, No Other Gastrointestinal: No Nausea, No Vomiting; Abdominal Pain; No Diarrhea, No Constipation, No Melena, No Hematochezia, No Other Genitourinary: No Dysuria, No Frequency, No Incontinence, No Hematuria, No Retention, No Other Musculoskeletal: No other, No neck pain, No shoulder pain, No arm pain, No back pain, No hand pain, No leg pain, No foot pain Skin: No Rash, No Lesions, No Jaundice, No Bruising, No Other Objective Vitals Vital Signs Date Time Temp Pulse Resp B/P (MAP) Pulse Ox O2 Delivery O2 Flow Rate FiO2 10/22/25 08:00 Nasal Cannula* 4 N/A Simple Mask* 10/22/25 05:00 97.0 88 17 149/89 (109) 93 97.0 Intake/Output Intake and Output 10/22/25 06:59 Intake Total 1380 ml Output Total 650 ml Balance 730 ml Intake Oral 1080 ml IV Total 300 ml Output Urine Total 650 ml # Voids 4 General Appearance: Alert HEENT: Atraumatic, PERRLA, EOMI, Mucous membr. moist/pink Neck: Supple Lungs: Clear to auscultation, Normal air movement Cardiovascular: Regular rate, Normal S1, Normal S2, No murmurs, Gallops, Rubs Abdomen: Normal bowel sounds, Soft, No tenderness Neuro: Cranial nerves 3-12 NL Psych/Mental Status: Mental status NL Medications Current Medications Medications Dose Ordered Sig/Jasper Route Start Time Stop Time Status Last Admin Dose Admin Metronidazole 100 ml @ 100 mls/hr Q8HR IV 10/20/25 14:00 10/22/25 05:38 100 MLS/HR Levofloxacin/ Dextrose 100 ml @ 100 mls/hr DAILY IV 10/20/25 10:00 10/22/25 08:28 100 MLS/HR Ondansetron HCl 4 mg Q4HP PRN IV 10/20/25 07:30 10/21/25 08:38 4 MG Docusate Sodium 100 mg BIDPRN PRN PO 10/20/25 07:30 Acetaminophen 650 mg Q6HP PRN PO 10/20/25 07:30 Nitroglycerin 0.4 mg Q5MINP PRN SL 10/20/25 08:45 Morphine Sulfate 2 mg Q4HPRN PRN IV 10/21/25 12:30 Hold Ketorolac Tromethamine 30 mg Q6HPRN PRN IV 10/21/25 13:15 10/26/25 13:14 10/21/25 21:43 30 MG Potassium Chloride/Dextrose/ Sod Cl 1,000 ml @ 75 mls/hr [id number] IV 10/21/25 14:00 10/22/25 05:38 75 MLS/HR Laboratory Results Laboratory Tests 10/22/25 04:30 Chemistry Test 10/22/25 04:30 Calcium Level 9.3 mg/dL (8.7-10.4) Labs and/or images reviewed: Labs reviewed by me Assessment/Plan Assessment/Plan Acute appendicitis Leukocytosis, unspecified Acute abdominal pain Generalized weakness Nausea/vomiting Continue current management Continue IVF Continue clear liquid diet as tolerate. Advance per surgeon. Encourage to be out of bed and ambulate. Plan discussed with: Patient, Spouse My Orders Orders - CONNOR JORDAN MD Procedure Category Date Status Time Complete Blood Count LAB 10/23/25 Verified 05:00 Complete Blood Count LAB 10/24/25 Verified 05:00 Complete Blood Count LAB 10/25/25 Verified 05:00 Complete Blood Count LAB 10/26/25 Verified 05:00 Basic Metabolic Panel LAB 10/23/25 Verified 05:00 Basic Metabolic Panel LAB 10/24/25 Verified 05:00 Basic Metabolic Panel LAB 10/25/25 Verified 05:00 Basic Metabolic Panel LAB 10/26/25 Verified 05:00 Date of Service: Oct 22, 2025 Billing Provider: CONNOR JORDAN MD Common Visit Codes: [id number] INP/OBS CARE(HIGH) CONNOR JORDAN MD Oct 22, 2025 12:06
--- NOTE | 2025-10-22 18:13 | DVH ---
INDICATION: N/V TECHNIQUE: XY KUB ABDOMEN SINGLE VIEWXY Comparison: 10/21/2025 FINDINGS/IMPRESSION: There are multiple loops of gaseous distended small and large bowel. This can be secondary to ileus, obstruction. CT abdomen pelvis recommended to further evaluate.
[2025-10-22] MEDS: LISINOPRIL 5 MG TAB PO ONE (23:43)
[2025-10-23] VITALS (7 sets, daily range): BP systolic 123–149; BP diastolic 84–99; PULSE 70–80; RESP 16–18; TEMP 96.9–98.7; O2SAT 91–96
[2025-10-23 07:03] LABS: Hematocrit 38.0 % (41.0-53.0); Hemoglobin 13.1 g/dL (13.5-17.5); Mean Corpuscular Hemoglobin 31.1 pg (28.0-32.0); Mean Corpuscular Volume 90.2 fL (80.0-100.0); Nucleated Red Blood Cells % 0.0 %
[2025-10-23 07:27] LABS: Anion Gap 9 (5-15); Carbon Dioxide 26 mmol/L (20-31); Chloride 106 mmol/L (98-107); Potassium 3.8 mmol/L (3.5-5.1); Sodium 141 mmol/L (136-145)
[2025-10-23 07:31] LABS: Calcium 8.6 mg/dL (8.7-10.4)
[2025-10-23 07:33] LABS: BUN/Creatinine Ratio 18.0 (10.0-20.0); Blood Urea Nitrogen 16 mg/dL (9-23); Glucose 135 mg/dL (74-106)
--- NOTE | 2025-10-23 07:44 | DVH ---
CLINICAL HISTORY: 69 years old, Male; ileus. TECHNIQUE: Single AP abdominal radiograph was obtained. COMPARISON: XY KUB ABDOMEN SINGLE VIEW on DOS: 10/22/25, XY KUB ABDOMEN SINGLE VIEW on DOS: 10/21/25 FINDINGS: Similar-appearing gaseous distention of small bowel and large bowel, possible ileus. Partial small bowel obstruction not excluded. No significant interval change. IMPRESSION: Similar-appearing gaseous distention of small bowel and large bowel, possible ileus. Partial small bowel obstruction not excluded. Correlate with clinical findings.
--- NOTE | 2025-10-23 08:06 | DVHPN2 ---
Progress Note - Dictate Date Seen: Oct 23, 2025 Medical Necessity Reason Pt with a Central, PICC or Fol: No Subjective E: small amt of emesis this am but states feels better than yesterday. +flatus/BM vital signs Vital Sign Date Time Temp Pulse Resp B/P (MAP) Pulse Ox O2 Delivery O2 Flow Rate FiO2 10/23/25 05:00 96.9 80 17 147/91 (109) 91 96.9 10/22/25 20:00 Nasal Cannula* 4 N/A Simple Mask* Total Intake and Output 10/22/25 10/22/25 10/23/25 15:00 23:00 07:00 Intake Total 1000 ml 500 ml Balance 1000 ml 500 ml medications Current Medications Medications Dose Ordered Sig/Jasper Route Start Time Stop Time Status Last Admin Dose Admin Metronidazole 100 ml @ 100 mls/hr Q8HR IV 10/20/25 14:00 10/23/25 05:05 100 MLS/HR Levofloxacin/ Dextrose 100 ml @ 100 mls/hr DAILY IV 10/20/25 10:00 10/22/25 08:28 100 MLS/HR Ondansetron HCl 4 mg Q4HP PRN IV 10/20/25 07:30 10/23/25 01:34 4 MG Docusate Sodium 100 mg BIDPRN PRN PO 10/20/25 07:30 Acetaminophen 650 mg Q6HP PRN PO 10/20/25 07:30 Nitroglycerin 0.4 mg Q5MINP PRN SL 10/20/25 08:45 Morphine Sulfate 2 mg Q4HPRN PRN IV 10/21/25 12:30 Hold Ketorolac Tromethamine 30 mg Q6HPRN PRN IV 10/21/25 13:15 10/26/25 13:14 10/21/25 21:43 30 MG Potassium Chloride/Dextrose/ Sod Cl 1,000 ml @ 75 mls/hr [id number] IV 10/21/25 14:00 10/23/25 03:39 75 MLS/HR Metoclopramide HCl 10 mg Q8HPRN PRN IV 10/22/25 17:30 objective GEN: NAD ABD: surgical incisions healing well. mod distention KUB: ileus laboratory and microbiology Laboratory Tests 10/23/25 06:22 Test 10/23/25 06:22 Range/Units Serum Glucose 135 H 74-106 mg/dL Assessment/Plan A: 1. s/p lap appendectomy POD #3 with persistent postop ileus P: 1. full liquid diet. if he is able to tolerate, dc home. however, if not then will get CT abd/pelvis with gastrografin. Plan discussed with: Patient RADHA DOUGHERTY MD Oct 23, 2025 08:06
[2025-10-23] MEDS ORDERED: GASTROGRAFIN 30 ML SOL ONE (08:30)
[2025-10-23] MEDS: METOCLOPRAMIDE HCL 5MG/ml INJ 2ml VIAL IV PRN (09:18)
--- NOTE | 2025-10-23 13:06 | DVH ---
INDICATION: ileus postop TECHNIQUE: CT axial images of the abdomen and pelvis are obtained without contrast. Coronal and sagittal reformats were obtained. Radiation Dose Information: CTDI volume is 17.82 mGy. Dose-length product is 1187.77 mGy*cm COMPARISON: CT CT AB PEL WO CON-NO ORAL OR IV on DOS: 10/20/25 FINDINGS: There is limited interpretation of the abdomen and pelvis without administration of intravenous contrast. Lung bases demonstrate right lower lobe consolidation. Developing left lower lobe consolidation. Tiny bilateral pleural effusions. Adrenal glands, spleen, pancreas unremarkable in shapem. Multiple hepatic cysts measuring up to 2.[address] evidence for cholelithiasis. Bilateral peripelvic cysts. No hydronephrosis. Marked gastric distention. The small bowel loops are abnormally dilated up to approximately 4.5 cm involving the proximal to mid small bowel. Distal small bowel loops are relatively nondilated Colonic diverticular disease. Bowel wall thickening of the descending colon. Interval appendectomy. Small amount of pneumoperitoneum. Atherosclerotic calcification disease. Bladder partially distended. Trace free pelvic fluid. No inguinal lymphadenopathy. Moderate bilateral sacroiliac degenerative joint disease. Moderate thoracolumbar degenerative disc disease and facet hypertrophic changes. IMPRESSION: Limited evaluation without contrast. Interval appendectomy. Dilated loops of small bowel up to 4.4 cm and gastric distention which could be secondary to postoperative ileus, bowel obstruction. This involves primarily the stomach, proximal to mid small bowel loops with the distal small bowel loops being relatively nondistended. Enteric contrast remains primarily within the proximal small bowel and stomach. Surgical consultation advised for further management. Interval Appendectomy. Small amount of pneumoperitoneum, likely postoperative in nature. Correlate clinically to exclude perforation and other etiologies. Trace free pelvic fluid. Colonic diverticular disease. Mild wall thickening of the descending colon may represent colitis. Bilateral lower lobe pulmonary consolidation /atelectasis, [id number] Other findings as described.
--- NOTE | 2025-10-23 16:08 | DVH ---
Date: 10/23/2025 02:58 PM Examination: XY KUB ABDOMEN SINGLE VIEW History: ileus COMPARISON: XY KUB ABDOMEN SINGLE VIEW on DOS: 10/23/25, XY KUB ABDOMEN SINGLE VIEW on DOS: 10/22/25, XY KUB ABDOMEN SINGLE VIEW on DOS: 10/21/25 TECHNIQUE: Frontal views of the abdomen was obtained. FINDINGS: Bowel gas pattern is unremarkable. Persistent gas distended small bowel may represent either ileus or small-bowel obstruction The lung bases are unremarkable. Lucent line through the left femoral neck CT abdomen and pelvis from 10/23/2025 demonstrated no fracture in the left femoral neck. IMPRESSION: 1. Can not exclude small bowel obstruction recommend small-bowel follow-through for further evaluation. 2. CT abdomen pelvis done 10/23/2025 10:41 a.m. demonstrated no fracture of the left femur.
[2025-10-23] MEDS ORDERED: ZOFR4T PO (18:47)
[2025-10-23] MEDS ORDERED: DOCU-265 PO (18:47)
[2025-10-23] MEDS ORDERED: HYDR-4902 PO (18:53)
--- NOTE | 2025-10-23 18:55 | DVHDS2 ---
Discharge Summary Date of Admission Oct 20, 2025 at 08:31 Date of Discharge: Oct 23, 2025 Admitting Diagnosis Acute appendicitis Leukocytosis, unspecified Acute abdominal pain Generalized weakness Nausea/vomiting Labs/Diagnostic Data: Laboratory Results Test 10/23/25 06:22 10/21/25 05:39 10/20/25 08:05 10/20/25 04:30 White Blood Count 7.8 10^3/uL (4.4-10.8) Red Blood Count 4.21 10^6/uL (4.5-5.90) Hemoglobin 13.1 g/dL (13.5-17.5) Hematocrit 38.0 % (41.0-53.0) Mean Corpuscular Volume 90.2 fL (80.0-100.0) Mean Corpuscular Hemoglobin 31.1 pg (28.0-32.0) Mean Corpuscular Hemoglobin Concent 34.5 g/dL (32.0-36.0) Red Cell Distribution Width 14.5 % (11.8-14.3) Platelet Count 160 10^3/uL (140-450) Mean Platelet Volume 9.5 fL (6.9-10.8) Neutrophils (%) (Auto) 81.8 % (37.0-80.0) Lymphocytes (%) (Auto) 6.0 % (10.0-50.0) Monocytes (%) (Auto) 11.5 % (0.0-12.0) Eosinophils (%) (Auto) 0.5 % (0.0-7.0) Basophils (%) (Auto) 0.2 % (0.0-2.0) Neutrophils # (Auto) 6.4 10 ^3/uL (1.6-8.6) Lymphocytes # (Auto) 0.5 10 ^3/uL (0.4-5.4) Monocytes # (Auto) 0.9 10 ^3/uL (0-1.3) Eosinophils # (Auto) 0 10 ^3/uL (0-0.8) Basophils # (Auto) 0 10 ^3/uL (0-0.2) Nucleated Red Blood Cells 0.0 % Sodium Level 141 mmol/L (136-145) Potassium Level 3.8 mmol/L (3.5-5.1) Chloride Level 106 mmol/L (98-107) Carbon Dioxide Level 26 mmol/L (20-31) Anion Gap 9 (5-15) Blood Urea Nitrogen 16 mg/dL (9-23) Creatinine 0.89 mg/dL (0.700-1.30) Glomerular Filtration Rate Calc 94 mL/min (>90) BUN/Creatinine Ratio 18.0 (10.0-20.0) Serum Glucose 135 mg/dL (74-106) Calcium Level 8.6 mg/dL (8.7-10.4) Total Bilirubin 0.8 mg/dL (0.2-1.0) Aspartate Amino Transferase (AST) 12 U/L (13-40) Alanine Aminotransferase (ALT) 15 U/L (7-40) Alkaline Phosphatase 33 U/L (46-116) Total Protein 6.5 g/dL (5.7-8.2) Albumin 4.1 g/dL (3.2-4.8) Prothrombin Time 11.0 sec (9.3-11.8) Prothrombin Time INR 1.04 (0.9-1.15) Activated Partial Thromboplast Time 25.4 SEC (24.5-34.5) Lipase 35 U/L (12-53) Other Laboratory Tests 10/23/25 06:22 Brief Hx & Hospital Course: This is a 69 years old male with no known past medical history come to emergency department because severe constant diffuse abdominal pain 7/10 nonradiating, and associated with dry heaving. The patient was found to have WBC of 11.7.Abdomen/pelvis CT consistent with acute uncomplicated appendicitis and appendicolith; chest x-ray revealing left bibasilar airspace opacification, small left pleural effusion. Patient was started on IV antibiotic regimen levofloxacin. Surgery was consulted. The patient subsequently had appendectomy done. At 1st he had trouble of tolerate food. He had nausea and vomiting. But today he able to keep his food down. No nausea or vomiting. The patient had flatus and also pass bowel movement. The patient will be discharged home. Follow up with primary care physician 1-2 weeks. Follow up with surgeon per schedule. Activity as tolerated. Diet per home diet. Physical exam: HEENT: Normocephalic atraumatic pupils equal react to light and accommodation. Extraocular muscles intact, conjunctiva pink, oropharynx moist, no thrush, no exudate. Lymphatic: No lymphadenopathy Cardiovascular exam: S1, S2 was heard. No murmurs, rubs, gallops Lung: Clear on auscultation bilaterally, no wheeze, rale, rhonchi. GI: Abdominal soft, nondistended, nontenderness, positive bowel sounds. Extremity: No crepitus, cyanosis, edema. Pedal pulses present bilateral. Full range of motion. Skin: Normal turgor, no rash. Psych: Alert, oriented x3. Neurology: No focal deficits, cranial nerve II to XII grossly intact. This medical document was created using an electronic medical record system with [employer] direct computerized dictation system. Although this document has been carefully reviewed, there may still be some phonetic and typographical errors. These areas are purely typographical due to imperfections of the software programs, and do not reflect any compromise in the patient's medical care. Condition at Discharge: Stable Final Diagnosis/Problems List Acute appendicitis status post appendectomy Leukocytosis, unspecified Acute abdominal pain Generalized weakness Nausea/vomiting Discharge Disposition: Home Discharge Instruct/Medications Diet: Regular Activity: No Restrictions, As Tolerated Follow Up/Referral: pcp 1-2 weeks Surgeon, dr Ohara per schedule Medications: see med list. Scheduled PRN Docusate Sodium (Docusate Sodium), 100 MG PO BIDPRN PRN Hydrocodone-Acetaminophen (Hydrocodone Bitartrate/AC 5-325 mg), 1 TAB PO BID PRN Ondansetron Odt 4MG Tab (Zofran Po), 4 MG PO Q8HPRN PRN Discharge Statement: "Patient was advised to return to the ER or call 911 if any headaches, dizziness, shortness of breath, chest pain, abdominal pain, bleeding, fevers, or worsening of medical condition. Patient was counseled about treatment plan, medications, possible side effects, patientverbalized understanding. All questions were answered to the best of my ability. This discharge took greater then 30 minutes in planning, reviewing documentation, counseling the patient, and discussing with other team members." ASSESSMENT ASSESSMENT Assessment Acute appendicitis Date of Service: Oct 23, 2025 Billing Provider: CONNOR JORDAN MD Common Visit Codes: 51060-JKH/OBS DISCH DAY >30min CONNOR JORDAN MD Oct 23, 2025 18:55
== END 2025-10-23 20:12 | disposition home or self-care (01) | DRG 398 ==
LOC: ER 03:33 → OVERFLOW 08:31 → TELE-CENTR 14:20
PROVIDERS: ADMIT Internal Medicine; ATTEND Internal Medicine
PROC: 0DTJ4ZZ Resection of Appendix, Percutaneous Endoscopic Approach (ICD-10-PCS; principal; 2025-10-20 09:09)
DX: K35.80 Unspecified acute appendicitis (principal); K56.7 Ileus, unspecified; K91.89 Other postprocedural complications and disorders of digestive system; Z88.0 Allergy status to penicillin; Z88.5 Allergy status to narcotic agent; Z90.49 Acquired absence of other specified parts of digestive tract
CPT/HCPCS: 36415; 71045; 74018; 74176; 80048; 80053; 83690; 85025; 85610; 85730; 86850; 86900; 86901; 93005; 96365; 96367; 96372; 97116; 97163; G0378; J1885; J1956; J2250; J2405; J2704; J3490